=== PATIENT | female | born 1950 ===

== ENCOUNTER 2019-05-15 11:56 | Outpatient (CLI) | payer OTHER ==
[~2019-05-15 11:56] MED LIST: ALAVERT10 MG PO; PREMARIN1.25 MG PO
== END 2019-05-15 11:59 | disposition home or self-care (01) ==
LOC: MRI 11:56
DX: G57.02 Lesion of sciatic nerve, left lower limb (principal)
CPT/HCPCS: 73718

== ENCOUNTER 2019-05-15 13:43 | Outpatient (CLI) | payer OTHER | END 2019-05-15 13:47 | disposition home or self-care (01) | LOC: NUCLEAR 13:43 | DX: M81.0 Age-related osteoporosis without current pathological fracture (principal) ==

== ENCOUNTER 2019-05-19 07:46 | Outpatient (CLI) | payer OTHER ==
[2019-05-19] MEDS ORDERED: FLECAINIDE ACET50 MG PO (10:13)
[2019-05-19] MEDS ORDERED: LEVOTHYROXINE25 MCG PO (10:13)
[2019-05-19] MEDS ORDERED: CRESTOR20 MG PO (10:14)
[2019-05-19] MEDS ORDERED: SINGULAIR10 MG PO (10:14)
[2019-05-19] MEDS ORDERED: ESTR0.624 PO (10:14)
[2019-05-19] MEDS ORDERED: COZAAR25 MG PO (10:14)
[2019-05-19] MEDS ORDERED: GILTUSS TR TAB1 EACH PO (10:15)
[2019-05-19] MEDS ORDERED: PREDNISONE20 MG PO (10:15)
[2019-05-19] MEDS ORDERED: CLARITIN5 MG PO (10:15)
[2019-05-19] MEDS ORDERED: BREO ELLIPTA 21 EACH (10:15)
== END 2019-05-19 15:13 | disposition home or self-care (01) ==
LOC: LAB 07:46
DX: D64.89 Other specified anemias (principal); B96.29 Other Escherichia coli [E. coli] as the cause of diseases classified elsewhere; E88.89 Other specified metabolic disorders; D68.8 Other specified coagulation defects; N39.0 Urinary tract infection, site not specified; Z22.322 Carrier or suspected carrier of Methicillin resistant Staphylococcus aureus; Z76.89 Persons encountering health services in other specified circumstances; I49.8 Other specified cardiac arrhythmias

== ENCOUNTER 2019-06-02 09:34 | Outpatient (CLI) | payer OTHER ==
[~2019-06-02 09:34] MED LIST changes: +BREO ELLIPTA 21 EACH; +CLARITIN5 MG PO; +COZAAR25 MG PO; +CRESTOR20 MG PO; +ESTR0.624 PO; +FLECAINIDE ACET50 MG PO; +GILTUSS TR TAB1 EACH PO; +LEVOTHYROXINE25 MCG PO; +PREDNISONE20 MG PO; +SINGULAIR10 MG PO
== END 2019-06-02 15:00 | disposition home or self-care (01) ==
LOC: LAB 09:34
DX: N39.0 Urinary tract infection, site not specified (principal)

== ENCOUNTER 2019-06-16 05:42 | Day surgery (SDC) | payer OTHER | END 2019-06-16 15:35 | disposition home or self-care (01) | LOC: CIR.AMB 05:42 | DX: M75.111 Incomplete rotator cuff tear or rupture of right shoulder, not specified as traumatic (principal); M65.811 Other synovitis and tenosynovitis, right shoulder ==

== ENCOUNTER 2019-06-22 19:06 | Emergency (ER) | payer OTHER ==
[~2019-06-22] VITALS: Ht 160 cm; Wt 87.5 kg
== END 2019-06-22 23:47 | disposition home or self-care (01) ==
LOC: ER 19:06
DX: M40.294 Other kyphosis, thoracic region (principal); M54.2 Cervicalgia

== ENCOUNTER 2019-06-25 12:43 | Outpatient (CLI) | payer OTHER | END 2019-06-27 10:53 | disposition home or self-care (01) | LOC: LAB 12:43 | DX: D64.89 Other specified anemias (principal); M06.4 Inflammatory polyarthropathy ==

== ENCOUNTER 2019-07-16 11:48 | Outpatient (CLI) | payer OTHER | END 2019-07-16 11:51 | disposition home or self-care (01) | LOC: LAB 11:48 | DX: M06.4 Inflammatory polyarthropathy (principal); D64.89 Other specified anemias ==